=== PATIENT | male | born 1980 | race African-American/Black ===

== ENCOUNTER 2018-04-05 13:48 | Inpatient (IN) ==
[2018-04-05] MEDS ORDERED: Acetaminophen 325 MG Tablet PO ONE (15:05)
--- NOTE | 2018-04-05 15:21 | ED ---
HPI General Chief complaint: Respiratory Symptoms Stated complaint: Flu-Like symptoms Time Seen by Provider: 04/05/18 14:55 Source: patient Mode of arrival: ambulatory Limitations: no limitations History of Present Illness HPI narrative: 37-year-old male with a history of HIV presents to the emergency department evaluation of "flulike symptoms" that have been persistent for 2 weeks. Patient states that he has had an occasionally productive cough with yellow and green sputum, sinus congestion, chills, occasional shortness of breath. Also states he has a headache from the amount of coughing that he has been doing. States that his sinuses have also been sore and has clear rhinorrhea. He denies any other medical problems. Says he has posterior rib pain with coughing. Onset (ago): week(s) (2) Severity: mild Pain Consistency: constant Relieving factors: none Exacerbating factors: none Associated symptoms: Reports cough and fever/chills Treatments prior to arrival: Reports none Related Data Home Medications Medication Instructions Recorded Confirmed No Known Home Medications 01/22/18 04/05/18 Previous Rx's Medication Instructions Recorded azithromycin [Zithromax] 500 mg PO DAILY #5 tab 04/06/18 cefuroxime axetil 500 mg PO Q12HR #14 tab 04/06/18 Allergies Allergy/AdvReac Type Severity Reaction Status Date / Time No Known Allergies Allergy Unverified 01/22/18 17:54 Review of Systems ROS: all other systems reviewed are negative [facility] Social History Social History Substance History: No History of Abuse Second Hand Smoke Exposure: Yes Smoking Status: Former smoker Tobacco Type: Cigarettes How Often Do You Have a Drink Containing Alcohol: Never Recent Travel in [facility] within the Last 8 Weeks: No Recent Out of Country Travel within the Last 8 Weeks: No Immunization History Tetanus Immunization: Unsure Exam Narrative Exam Narrative: GENERAL: WD, WN in NAD SKIN: Focused skin assessment warm/dry. HEAD: Atraumatic. Normocephalic. EYES: Pupils equal and round. No scleral icterus. No injection or drainage. ENT: No nasal bleeding or discharge. Mucous membranes pink and moist. NECK: Trachea midline. No JVD. CARDIOVASCULAR: Regular rate and rhythm. No murmur appreciated. RESPIRATORY: No accessory muscle use. Clear to auscultation. Breath sounds equal bilaterally. Wheezing R>L lower lung elizabeth, rhonchi MUSCULOSKELETAL: No obvious deformities. No clubbing. No cyanosis. No edema. NEUROLOGICAL: Awake and alert. No obvious cranial nerve deficits. Motor grossly within normal limits. Normal speech. PSYCHIATRIC: Appropriate mood and affect; insight and judgment normal. Course Initial Documented Vital Signs Temperature 100.4 F H 04/05/18 13:55 Pulse Rate 92 H 04/05/18 13:55 Respiratory Rate 17 04/05/18 13:55 Blood Pressure 187/80 H 04/05/18 13:55 Pulse Oximetry 98 04/05/18 13:55 Last Documented Vital Signs Temperature 98.5 F 04/06/18 12:00 Pulse Rate 70 04/06/18 12:00 Respiratory Rate 18 04/06/18 12:00 Blood Pressure 130/58 L 04/06/18 12:00 Pulse Oximetry 100 04/06/18 12:00 Medical Decision Making ZULMA Attestation ZULMA supervised visit: Yes Attestation: I, Dr. Knight, have reviewed the advance practice practitioner's documentation and am in agreement, met with the patient face to face, made the diagnosis, and the medical decision making was done by me. *My assessment and Findings: Patient is a 37-year-old male, past medical history significant for HIV and noncompliance with his medications, who presents with complaint of generalized ill feeling for the last 2 weeks with a cough. He is febrile on arrival but has been hemodynamically stable with a normal pulse ox. Given his possible immunocompromise sepsis protocol was initiated. Chest x-ray is concerning for pneumonia for which she has been given Rocephin and azithromycin as it does not have the typical appearance of PJP pneumonia. He has been given multiple duo nebs as he has had wheezing as well to which he has responded well. He will be admitted to the hospital for further evaluation and management. MDM Narrative Medical decision making narrative: 37-year-old male with a history of HIV presents to the emergency department for evaluation of fever, body aches, and flu-like symptoms. States he has shortness of breath as well. Says his symptoms have been present for approximately 2 weeks. He states that he has not had treatment for HIV in 2 years and he would like assistance obtaining a primary care physician and infectious disease provider. Says he has been to the health department however, he has had some difficulty obtaining treatment. CT head ordered for concern of abscesses he has a history of HIV untreated. He is also complaining of headache. Tylenol administered for fever. Albuterol nebs administered x2. Rocephin, azithromycin, Solu-Medrol administered for developing pneumonia. Because of his history of untreated HIV, fever, duration of symptoms, will admit patient for observation. I spoke with Dr. Dietrich who agreed to the admission. Medical Screen Exam Complete: Yes Emergency Medical Condition: Yes Differential Diagnosis Differential Diagnosis: Pneumonia, sepsis, abscess Lab Data Result diagrams: 04/06/18 04:47 04/06/18 04:47 Lab Results 04/05/18 04/05/18 04/05/18 Range/Units 15:50 15:50 15:50 WBC 11.3 H (4.0-11.0) th/mm3 RBC 4.34 L (4.50-5.90) mil/mm3 Hgb 12.5 L (13.0-17.0) gm/dL Hct 36.3 L (39.0-51.0) % MCV 83.6 (80.0-100.0) fL MCH 28.8 (27.0-34.0) pg MCHC 34.5 (32.0-36.0) % RDW 13.3 (11.6-17.2) % Plt Count 233 (150-450) th/mm3 MPV 8.5 (7.0-11.0) fL Neut % (Auto) 52.9 (16.0-70.0) % Lymph % (Auto) 38.8 (9.0-44.0) % [place] % (Auto) 6.9 (0.0-8.0) % Eos % (Auto) 1.0 (0.0-4.0) % Baso % (Auto) 0.4 (0.0-2.0) % Neut # (Auto) 6.0 (1.8-7.7) th/mm3 Lymph # (Auto) 4.4 (1.0-4.8) th/mm3 [place] # (Auto) 0.8 (0.0-0.9) th/mm3 Eos # (Auto) 0.1 (0.0-0.4) th/mm3 Baso # (Auto) 0.0 (0.0-0.2) th/mm3 WBC Differential . Differential Comment Auto diff final PT 10.9 (9.8-11.6) sec INR 1.1 Ratio APTT 35.5 H (24.3-30.1) sec Sodium 137 (136-145) meq/L Potassium 3.9 (3.5-5.1) meq/L Chloride 100 (98-107) meq/L Carbon Dioxide 29.3 (21.0-32.0) meq/L Anion Gap 8 (5-15) meq/L BUN 13 (7-18) mg/dL Creatinine 1.04 (0.60-1.30) mg/dL Estimated GFR Greater than 89 (>89) mL/min Random Glucose 91 (74-106) mg/dL Lactic Acid (0.4-2.0) mmol/L Calcium 9.1 (8.5-10.1) mg/dL Total Bilirubin 0.4 (0.2-1.0) mg/dL AST 26 (15-37) U/L ALT 20 (12-78) U/L Alkaline Phosphatase 60 (45-117) U/L Total Protein 9.4 H (6.4-8.2) g/dL Albumin 3.2 L (3.4-5.0) g/dL 04/05/18 04/06/18 04/06/18 Range/Units 15:54 04:47 04:47 WBC 9.2 (4.0-11.0) th/mm3 RBC 4.26 L (4.50-5.90) mil/mm3 Hgb 12.1 L (13.0-17.0) gm/dL Hct 36.3 L (39.0-51.0) % MCV 85.2 (80.0-100.0) fL MCH 28.4 (27.0-34.0) pg MCHC 33.4 (32.0-36.0) % RDW 13.6 (11.6-17.2) % Plt Count 205 (150-450) th/mm3 MPV 9.6 (7.0-11.0) fL Neut % (Auto) 70.5 H (16.0-70.0) % Lymph % (Auto) 25.3 (9.0-44.0) % [place] % (Auto) 3.7 (0.0-8.0) % Eos % (Auto) 0.0 (0.0-4.0) % Baso % (Auto) 0.5 (0.0-2.0) % Neut # (Auto) 6.5 (1.8-7.7) th/mm3 Lymph # (Auto) 2.3 (1.0-4.8) th/mm3 [place] # (Auto) 0.3 (0.0-0.9) th/mm3 Eos # (Auto) 0.0 (0.0-0.4) th/mm3 Baso # (Auto) 0.0 (0.0-0.2) th/mm3 WBC Differential . Differential Comment Auto diff final PT (9.8-11.6) sec INR Ratio APTT (24.3-30.1) sec Sodium 138 (136-145) meq/L Potassium 4.9 D (3.5-5.1) meq/L Chloride 103 (98-107) meq/L Carbon Dioxide 28.0 (21.0-32.0) meq/L Anion Gap 7 (5-15) meq/L BUN 14 (7-18) mg/dL Creatinine 0.88 (0.60-1.30) mg/dL Estimated GFR Greater than 89 (>89) mL/min Random Glucose 99 (74-106) mg/dL Lactic Acid 1.1 (0.4-2.0) mmol/L Calcium 8.8 (8.5-10.1) mg/dL Total Bilirubin 0.2 (0.2-1.0) mg/dL AST 18 (15-37) U/L ALT 19 (12-78) U/L Alkaline Phosphatase 58 (45-117) U/L Total Protein 8.6 H D (6.4-8.2) g/dL Albumin 2.8 L (3.4-5.0) g/dL Imaging Data Radiologist's impression: Chest X-Ray 04/05/18 15:05 CONCLUSION: Small mild infiltrate left lung base. Head CT 04/05/18 15:23 CONCLUSION: 1. Unremarkable and stable CT scan of the brain. 2. There is a New Bilateral pansinusitis. Discharge Plan Discharge Disposition Patient Disposition: 30 Still Patient Discharge Condition Condition: Stable Discharge Details Diagnosis: Pneumonia Physicians Team ED Provider: Margarita Knight ED Midlevel Provider: Kely Mccray Primary Care Provider: Primary Care Ena Sanz Attending Provider: Rocio Daniels Other Providers: June Nguyen Status ED Status: Left Department Discharge Information Discharge Date/Time: 04/05/18 20:38
--- NOTE | 2018-04-05 15:51 | XR ---
EXAM DATE: 04/05/2018 3:05 PM EDT AGE/SEX: 37 years / Male INDICATIONS: . Cold and flu symptoms for two weeks. CLINICAL DATA: This is the patient's initial encounter. Patient reports that signs and symptoms have been present for 2 weeks and indicates a pain score of 0/10. MEDICAL/SURGICAL HISTORY: None. None. COMPARISON: No prior exams available for comparison. FINDINGS: There is a small mild infiltrate in the left lung base. Otherwise, the lungs are clear. No pleural ef fusions or pulmonary edema. The heart size is within normal limits. The bony structures are grossly i ntact. CONCLUSION: Small mild infiltrate left lung base. Electronically signed by: Alfie Avelar MD 04/05/2018 3:50 PM EDT
[2018-04-05] MEDS ORDERED: Sod Chloride 0.9% Inj 1,000 ML IV.SIG SCH (16:00)
[2018-04-05 16:14] LABS: Baso % (Auto) 0.4 % (0.0-2.0); Eos # (Auto) 0.1 th/mm3 (0.0-0.4); Hematocrit 36.3 % (39.0-51.0); Hemoglobin 12.5 gm/dL (13.0-17.0); Lymph # (Auto) 4.4 th/mm3 (1.0-4.8); Lymph % (Auto) 38.8 % (9.0-44.0); Mean Corpuscular HGB Conc 34.5 % (32.0-36.0); Mean Corpuscular Hemoglobin 28.8 pg (27.0-34.0); Mean Corpuscular Volume 83.6 fL (80.0-100.0); Mean Platelet Volume 8.5 fL (7.0-11.0); Mono # (Auto) 0.8 th/mm3 (0.0-0.9); Mono % (Auto) 6.9 % (0.0-8.0); Neut % (Auto) 52.9 % (16.0-70.0); Platelet Count 233 th/mm3 (150-450); Red Blood Count 4.34 mil/mm3 (4.50-5.90); Red Cell Distribution Width 13.3 % (11.6-17.2); White Blood Count 11.3 th/mm3 (4.0-11.0)
[2018-04-05 16:28] LABS: Activated Partial Thrombo Time 35.5 sec (24.3-30.1); INR 1.1 Ratio; Prothrombin Time 10.9 sec (9.8-11.6)
[2018-04-05 16:33] LABS: Albumin 3.2 g/dL (3.4-5.0); Anion Gap 8 meq/L (5-15); Aspartate Aminotransferase 26 U/L (15-37); Blood Urea Nitrogen 13 mg/dL (7-18); Calcium 9.1 mg/dL (8.5-10.1); Carbon Dioxide 29.3 meq/L (21.0-32.0); Chloride 100 meq/L (98-107); Glomerular Filtration Rate Greater Than 89 mL/min (>89); Glucose,Random 91 mg/dL (74-106); Potassium 3.9 meq/L (3.5-5.1); Sodium 137 meq/L (136-145)
[2018-04-05] MEDS ORDERED: MethylPREDNISolone Sod Succinate Inj 125 MG/2 ML Vial IV.PUSH ONE (16:33)
[2018-04-05 16:34] LABS: Alanine Aminotransferase 20 U/L (12-78)
[2018-04-05 16:37] LABS: Alkaline Phosphatase 60 U/L (45-117); Total Protein 9.4 g/dL (6.4-8.2)
[2018-04-05] MEDS ORDERED: Azithromycin 250 MG Tablet PO ONE (16:46)
--- NOTE | 2018-04-05 17:58 | CT ---
EXAM DATE: 04/05/2018 5:21 PM EDT AGE/SEX: 37 years / Male INDICATIONS: Headache with sepsis; possible abscess. CLINICAL DATA: This is the patient's initial encounter. Patient reports that signs and symptoms have been present for 1 week and indicates a pain score of 6/10. MEDICAL/SURGICAL HISTORY: HIV. None. RADIATION DOSE: 40.64 CTDI (mGy) [place] [facility] [place]22/[place]. . TECHNIQUE: Axial images of the head were acquired without contrast and after intravenous administrat ion of 48 ml Omnipaque 350 (iohexol) nonionic water-soluble contrast as a single exam dose. Using automated exposure control and adjustment of the mA and/or kV according to patient size, radiation do se was kept as low as reasonably achievable to obtain optimal diagnostic quality images. DICOM forma t image data is available electronically for review and comparison. FINDINGS: Cerebrum: The ventricles are normal for age. No evidence of midline shift, mass lesion, hemorrhage or acute infarction. No extraaxial fluid collections are seen. No significant changes. Posterior Fossa: The cerebellum and brainstem are intact. The 4th ventricle is midline. The cerebe llopontine angle is unremarkable. Extracranial: The visualized portion of the orbits is intact. There is opacification of the paranasa l sinuses bilaterally. There is bilateral pansinusitis. This finding is new compared to the prior schuyler dy. Skull: The calvaria is intact. No evidence of skull fracture. Post Contrast: No abnormal areas of parenchymal or dural enhancement. No evidence of blood-brain ba rrier breakdown. CONCLUSION: 1. Unremarkable and stable CT scan of the brain. 2. There is a New Bilateral pansinusitis. Electronically signed by: Alfie Avelar MD 04/05/2018 5:57 PM EDT
[2018-04-05] MEDS ORDERED: Bisacodyl 10 MG Supp RECTAL PRN (18:53)
[2018-04-05] MEDS ORDERED: Acetaminophen 325 MG Tablet PO PRN (18:53)
--- NOTE | 2018-04-05 18:55 | P.HPIM ---
History of Present Illness Primary Care Physician: No Primary Care Physician History of Present Illness: This is a 37-year-old male with PMH of HIV (Unknown CD4) who presented to ER with complaints of generalized weakness, congestion, fever/chills and productive cough w/ green-colored sputum. States he was previously following w / doctor in [facility], however has been off of HAART x2 yrs, does not recall last CD4 count. On arrival, BP 187/80, HR 92, O2 sat 98% on RA, Temp 100.4. WBC 11.3. INR 1.1. Chemistry unremarkable. Lactic Acid normal. S/p CT Head unremarkable. CXR small mild infiltrate left lung base. S/p Rocephin/Zithro in ER. - Diagnosis (1) SIRS (systemic inflammatory response syndrome) (2) PNA (pneumonia) (3) HIV (human immunodeficiency virus infection) Review of Systems PAST FAMILY HISTORY: Reviewed. No h/o DM or CAD All other systems reviewed negative except as stated in [facility] - History History Provided By: Patient - Medical History Medical History: Medical History (Last Updated 04/05/18 @ 14:46 by Mariel Gonzales) HIV disease Brain concussion Ptosis of eyelid, right - Tobacco History Second Hand Smoke Exposure: Yes Smoking Status: Former smoker Tobacco Type: Cigarettes - Alcohol History How Often Do You Have a Drink Containing Alcohol: Never - Substance Use History Substance History: No History of Abuse - Travel History Recent Travel in the [facility] Within the Last 8 Weeks: No Recent Travel Out of the Country Within the Last 8 Weeks: No - Immunization History Tetanus Immunization: Unsure Medications and Allergies Active Medications: Active Medications Sodium Chloride (Ns Inj) 1,000 mls @ 0 mls/hr IV.SIG BOLUS GABE Stop: 04/06/18 16:01 Allergies Allergy/AdvReac Type Severity Reaction Status Date / Time No Known Allergies Allergy Unverified 01/22/18 17:54 Home Medications Medication Instructions Recorded Confirmed Type No Known Home Medications 01/22/18 04/05/18 History Exam Vital signs: Vital Signs 04/05/18 13:55 04/05/18 15:17 04/05/18 16:30 Temperature 100.4 F H Pulse Rate 92 H 80 98 H Respiratory Rate 17 20 16 Blood Pressure 187/80 H Pulse Oximetry 98 Intake & Output 04/04/18 04/05/18 04/05/18 18:59 06:59 18:59 Weight 86.183 kg Narrative: PE: GENERAL: Pleasant young black male in no acute distress, profusely sweating. SKIN: Focused skin assessment warm and dry. HEENT: PERRLA, EOMI. No scleral icterus or conjunctival pallor. No lid lag or facial droop. CARDIOVASCULAR: Regular rate and rhythm. No obvious murmurs to auscultation. No chest tenderness to palpation. RESPIRATORY: No obvious rhonchi or wheezing. Clear to auscultation. Breath sounds equal bilaterally. GASTROINTESTINAL: Abdomen soft, non-tender, nondistended. BS normal. MUSCULOSKELETAL: Extremities without clubbing, cyanosis, or edema. No obvious deformities. NEUROLOGICAL: Awake, alert and oriented x4. No focal neurologic deficits. Moving both upper and lower extremities spontaneously. PSYCHIATRIC: Appropriate mood, flat affect. Insight and judgment normal. Results - Labs CBC & Chem 7: 04/05/18 15:50 04/05/18 15:50 Labs: Short CBC 04/05/18 Range/Units 15:50 WBC 11.3 H (4.0-11.0) th/mm3 Hgb 12.5 L (13.0-17.0) gm/dL Hct 36.3 L (39.0-51.0) % Plt Count 233 (150-450) th/mm3 BMP 04/05/18 15:50 Sodium 137 Potassium 3.9 Chloride 100 Carbon Dioxide 29.3 BUN 13 Creatinine 1.04 Calcium 9.1 Liver Function 04/05/18 Range/Units 15:50 Total Bilirubin 0.4 (0.2-1.0) mg/dL AST 26 (15-37) U/L ALT 20 (12-78) U/L Alkaline Phosphatase 60 (45-117) U/L Albumin 3.2 L (3.4-5.0) g/dL - Imaging Impressions Chest X-Ray 04/05/18 15:05 CONCLUSION: Small mild infiltrate left lung base. Head CT 04/05/18 15:23 CONCLUSION: 1. Unremarkable and stable CT scan of the brain. 2. There is a New Bilateral pansinusitis. Caprini VTE Risk Assessment Caprini VTE Risk Assessment: No/Low Risk (score <= 1) Caprini Risk Assessment Model: Point Value = 1 Point Value = 2 Point Value = 3 Point Value = 5 Age 41-60 Minor surgery BMI > 25 kg/m2 Swollen legs Varicose veins or History of unexplained or recurrent spontaneous Oral contraceptives or hormone replacement Sepsis (< 1 month) Serious lung disease, including pneumonia (< 1 month) Abnormal pulmonary function Acute myocardial infarction Congestive heart failure (< 1 month) History of inflammatory bowel disease Medical patient at bed rest Age 61-74 Arthroscopic surgery Major open surgery (> 45 min) Laparoscopic surgery (> 45 min) Malignancy Confined to bed (> 72 hours) Immobilizing plaster cast Central venous access Age >= 75 History of VTE Family history of VTE Factor V Leiden Prothrombin [id number] Lupus anticoagulant Anticardiolipin antibodies Elevated serum homocysteine Heparin-induced thrombocytopenia Other congenital or acquired thrombophilia Stroke (< 1 month) Elective arthroplasty Hip, pelvis, or leg fracture Acute spinal cord injury (< 1 month) Prophylaxis Regimen: Total Risk Factor Score Risk Level Prophylaxis Regimen 0-1 Low Early ambulation 2 Moderate Order ONE of the following: *Sequential Compression Device (SCD) *Heparin 5000 units SQ BID 3-4 Higher Order ONE of the following medications: *Heparin 5000 units SQ TID *Enoxaparin/Lovenox 40 mg SQ daily (WT < 150 kg, CrCl > 30 mL/min) *Enoxaparin/Lovenox 30 mg SQ daily (WT < 150 kg, CrCl > 10-29 mL/min) *Enoxaparin/Lovenox 30 mg SQ BID (WT < 150 kg, CrCl > 30 mL/min) AND/OR *Sequential Compression Device (SCD) 5 or more Highest Order ONE of the following medications: *Heparin 5000 units SQ TID (Preferred with Epidurals) *Enoxaparin/Lovenox 40 mg SQ daily (WT < 150 kg, CrCl > 30 mL/min) *Enoxaparin/Lovenox 30 mg SQ daily (WT < 150 kg, CrCl > 10-29 mL/min) *Enoxaparin/Lovenox 30 mg SQ BID (WT < 150 kg, CrCl > 30 mL/min) AND *Sequential Compression Device (SCD) Assessment and Plan - Assessment (1) SIRS (systemic inflammatory response syndrome) Code(s): R65.10 - Systemic inflammatory response syndrome (SIRS) of non- infectious origin without acute organ dysfunction Status: Acute (2) PNA (pneumonia) Code(s): J18.9 - Pneumonia, unspecified organism Status: Acute (3) HIV (human immunodeficiency virus infection) Code(s): B20 - Human immunodeficiency virus [HIV] disease Status: Acute - Plan A/P: 1. SIRS: Temp 100.4, HR 92, Source-PNA. S/p Blood cultures, follow up cultures, continue IV Abx, IVF for hydration. 2. PNA: CXR w/ left base infiltrate, images reviewed. Continue w/ Rocephin/ Zithro, DuoNeb prn, follow up cultures as above. 3. HIV: Not on HAART, off meds x2 yrs, does not recall last CD4 count but wishes to restart treatment. Lymphocyte panel pending, Consult ID for further eval/work up. Case Management for outpatient referral. 4. DVT Prophylaxis: SCD/Teds 5. Social work for d/c planning as needed 6. Case discussed w/ ER physician at length, labs/records/imaging reviewed by me.
[2018-04-05] MEDS: Sod Chloride 0.9% Inj 1,000 ML IV.CONT SCH (20:30)
[2018-04-06 06:06] LABS: Baso % (Auto) 0.5 % (0.0-2.0); Hematocrit 36.3 % (39.0-51.0); Hemoglobin 12.1 gm/dL (13.0-17.0); Lymph # (Auto) 2.3 th/mm3 (1.0-4.8); Lymph % (Auto) 25.3 % (9.0-44.0); Mean Corpuscular HGB Conc 33.4 % (32.0-36.0); Mean Corpuscular Hemoglobin 28.4 pg (27.0-34.0); Mean Corpuscular Volume 85.2 fL (80.0-100.0); Mean Platelet Volume 9.6 fL (7.0-11.0); Mono # (Auto) 0.3 th/mm3 (0.0-0.9); Mono % (Auto) 3.7 % (0.0-8.0); Neut # (Auto) 6.5 th/mm3 (1.8-7.7); Neut % (Auto) 70.5 % (16.0-70.0); Platelet Count 205 th/mm3 (150-450); Red Blood Count 4.26 mil/mm3 (4.50-5.90); Red Cell Distribution Width 13.6 % (11.6-17.2); White Blood Count 9.2 th/mm3 (4.0-11.0)
[2018-04-06 06:28] LABS: Alanine Aminotransferase 19 U/L (12-78); Albumin 2.8 g/dL (3.4-5.0); Alkaline Phosphatase 58 U/L (45-117); Anion Gap 7 meq/L (5-15); Aspartate Aminotransferase 18 U/L (15-37); Blood Urea Nitrogen 14 mg/dL (7-18); Calcium 8.8 mg/dL (8.5-10.1); Chloride 103 meq/L (98-107); Glomerular Filtration Rate Greater Than 89 mL/min (>89); Glucose,Random 99 mg/dL (74-106); Potassium 4.9 meq/L (3.5-5.1); Sodium 138 meq/L (136-145); Total Protein 8.6 g/dL (6.4-8.2)
[2018-04-06] MEDS: Budesonide-Formoterol 160/4.5 MCG 6 GM Inhaler INH SCH ×3 (07:16→21:29)
[2018-04-06] MEDS: Senna/Docusate Sodium 8.6/50 MG Tablet PO SCH ×3 (07:17→20:49)
[2018-04-06] MEDS: Sod Chloride 0.9% Inj 1,000 ML IV.CONT SCH (07:17)
[2018-04-06] MEDS ORDERED: guaiFENesin/Dextromethorphan 200 MG/20 MG 10 ML UDC PO PRN (09:36)
--- NOTE | 2018-04-06 09:36 | P.PNIM ---
Subjective Interval history: Complained of chest congestion and still with productive cough. Mild shortness of breath. No active chest pain. Still having some chills and fevers and fatigue. States that he was on antiretrovirals when he was in correction 2 years ago but has not been on this medication since he was released. Physical Exam Vital signs: Vital Signs 04/05/18 13:55 04/05/18 15:17 04/05/18 16:30 Temperature 100.4 F H Pulse Rate 92 H 80 98 H Respiratory Rate 17 20 16 Blood Pressure 187/80 H Pulse Oximetry 98 04/05/18 19:55 04/05/18 21:03 04/05/18 23:38 Temperature 98.1 F 98.5 F Pulse Rate 88 79 72 Respiratory Rate 16 18 18 Blood Pressure 123/65 134/74 123/68 Pulse Oximetry 96 99 04/06/18 08:00 Temperature 98.3 F Pulse Rate 60 Respiratory Rate 18 Blood Pressure 127/76 Pulse Oximetry 100 Intake & Output 04/05/18 04/06/18 04/06/18 18:59 06:59 18:59 Intake Total 480 / 480 Balance 480 / 480 Weight 86.183 kg 86.1 kg 86.1 kg Intake: Oral 480 / 480 Other: # Voids 2 # Bowel Movements 0 Weight On Admission 172.72 kg Narrative: GENERAL: This is a well-nourished, well-developed patient, in no apparent distress. CARDIOVASCULAR: Regular rate and rhythm without murmurs, gallops, or rubs. RESPIRATORY: Left-sided basilar rhonchi GASTROINTESTINAL: Abdomen soft, non-tender, nondistended. Normal active bowel sounds MUSCULOSKELETAL: Extremities without clubbing, cyanosis, or edema. NEURO: Alert & Oriented x4 to person, place, time, situation. Moves all ext x4 Results - Labs CBC & Chem 7: 04/06/18 04:47 04/06/18 04:47 Laboratory Results - last 24 hr 04/05/18 04/05/18 04/05/18 15:50 15:50 15:50 WBC 11.3 H RBC 4.34 L Hgb 12.5 L Hct 36.3 L MCV 83.6 MCH 28.8 MCHC 34.5 RDW 13.3 Plt Count 233 MPV 8.5 Neut % (Auto) 52.9 Lymph % (Auto) 38.8 [place] % (Auto) 6.9 Eos % (Auto) 1.0 Baso % (Auto) 0.4 Neut # (Auto) 6.0 Lymph # (Auto) 4.4 [place] # (Auto) 0.8 Eos # (Auto) 0.1 Baso # (Auto) 0.0 WBC Differential . Differential Comment Auto diff final PT 10.9 INR 1.1 APTT 35.5 H Sodium 137 Potassium 3.9 Chloride 100 Carbon Dioxide 29.3 Anion Gap 8 BUN 13 Creatinine 1.04 Estimated GFR Greater than 89 Random Glucose 91 Lactic Acid Calcium 9.1 Total Bilirubin 0.4 AST 26 ALT 20 Alkaline Phosphatase 60 Total Protein 9.4 H Albumin 3.2 L 04/05/18 04/06/18 04/06/18 15:54 04:47 04:47 WBC 9.2 RBC 4.26 L Hgb 12.1 L Hct 36.3 L MCV 85.2 MCH 28.4 MCHC 33.4 RDW 13.6 Plt Count 205 MPV 9.6 Neut % (Auto) 70.5 H Lymph % (Auto) 25.3 [place] % (Auto) 3.7 Eos % (Auto) 0.0 Baso % (Auto) 0.5 Neut # (Auto) 6.5 Lymph # (Auto) 2.3 [place] # (Auto) 0.3 Eos # (Auto) 0.0 Baso # (Auto) 0.0 WBC Differential . Differential Comment Auto diff final PT INR APTT Sodium 138 Potassium 4.9 D Chloride 103 Carbon Dioxide 28.0 Anion Gap 7 BUN 14 Creatinine 0.88 Estimated GFR Greater than 89 Random Glucose 99 Lactic Acid 1.1 Calcium 8.8 Total Bilirubin 0.2 AST 18 ALT 19 Alkaline Phosphatase 58 Total Protein 8.6 H D Albumin 2.8 L - Imaging Impressions Chest X-Ray 04/05/18 15:05 CONCLUSION: Small mild infiltrate left lung base. Head CT 04/05/18 15:23 CONCLUSION: 1. Unremarkable and stable CT scan of the brain. 2. There is a New Bilateral pansinusitis. Assessment and Plan - Assessment (1) SIRS (systemic inflammatory response syndrome) Code(s): R65.10 - Systemic inflammatory response syndrome (SIRS) of non- infectious origin without acute organ dysfunction Status: Acute (2) PNA (pneumonia) Code(s): J18.9 - Pneumonia, unspecified organism Status: Acute (3) HIV (human immunodeficiency virus infection) Code(s): B20 - Human immunodeficiency virus [HIV] disease Status: Acute - Plan 1. Community acquired pneumoniacontinue with IV Rocephin and Zithromax continue with DuoNeb treatment as needed follow-up with blood cultures and sputum cultures. Continue supportive care. 2. HIV history: Not on HAART, off meds x2 yrs, does not recall last CD4 count but wishes to restart treatment. Lymphocyte panel pending, Consult ID for further eval/work up. Case Management for outpatient referral. Counseled patient importance of following up with the [facility]. 3. Leukocytosisimproved on antibiotics. 4. DVT prophylaxisno mechanical or pharmaceutical VTE prophalaxis administered due to patient's low risk assessment of VTE. Encouraged ambulation.
--- NOTE | 2018-04-06 10:51 | P.CONID ---
History of Present Illness Service: Infectious disease Consult date: 04/06/18 Requesting Physician: Monica Emmanuel Reason for Consult: Evaluate patient with SIRS, HIV Primary Care Provider: No Primary Care Physician History of Present Illness: Patient seen and examined. Records reviewed. Patient is a 37-year-old male, diagnosed to have HIV around 2014, when he was in [facility], was reportedly started on antiretroviral during the time that he was in [facility]. He does not have any information as far as T-cell count. He has never had any infection related to his HIV. He was released from [facility] about a year and a half ago, and he moved here in the [facility]. He presented to the hospital complaining of 2-week history of generalized weakness, congestion, cough, productive of yellow to green phlegm. He denies any chest pain or any shortness of breath. He has had some fever and chills. 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 He lives by himself. He denies any exposure to any pets or birds. When he came in his white count was mildly elevated at 11. Chest x-ray showed a mild infiltrate in the left base. He was not hypoxic or tachycardic. Lactic acid is normal. Infectious disease consultation has been requested to evaluate the patient with HIV. Review of Systems Constitutional: Reports chills, Reports fever(s), Reports lack of energy, Reports malaise, Reports weakness, Denies night sweats Eyes: Denies discharge, Denies dry eyes Ears, Nose, Mouth, and Throat: Denies difficulty swallowing, Denies dizziness, Denies facial pain, Denies headache(s), Denies nasal discharge, Denies sore throat Cardiovascular: Denies chest pain, Denies shortness of breath Respiratory: Reports chest congestion, Reports cough, Denies coughing up blood, Denies shortness of breath Gastrointestinal: Denies abdominal pain, Denies loose stools, Denies nausea, Denies pain with swallowing, Denies vomiting Genitourinary: Denies difficulty urinating, Denies painful urination Musculoskeletal: Denies joint pain, Denies joint swelling Skin/Breast: Denies sores, Denies wounds PMFSH - History History Provided By: Patient - Medical History Medical History: Medical History (Last Reviewed 04/06/18 @ 10:47 by June Nguyen MD) HIV disease Brain concussion Ptosis of eyelid, right - Family History Family History: Family History (Last Reviewed 04/06/18 @ 10:47 by June Nguyen MD) Brother No problems noted. Father No problems noted. Other Family history of acute myocardial infarction Family history of diabetes mellitus - Tobacco History Second Hand Smoke Exposure: Yes Smoking Status: Former smoker Tobacco Type: Cigarettes - Alcohol History How Often Do You Have a Drink Containing Alcohol: Never - Substance Use History Substance History: No History of Abuse - Travel History Recent Travel in the [place] Within the Last 8 Weeks: No Recent Travel Out of the Country Within the Last 8 Weeks: No - Immunization History Tetanus Immunization: Unsure Medications and Allergies Active Medications: Active Medications Acetaminophen (Tylenol) 650 mg PO Q4H PRN PRN Reason: Temp > 100.4 Al Hydroxide/Mg Hydroxide (Milk Of Magnesia Liq) 30 ml PO Q12H PRN PRN Reason: Mild Constipation Albuterol (Duoneb Neb (Prn)) 1 ampul NEB Q4HR NEB PRN PRN Reason: SOB/WHEEZING Bisacodyl (Dulcolax Supp) 10 mg RECTAL DAILY PRN PRN Reason: SEVERE CONSITIPATION Budesonide/Formoterol Fumarate (Symbicort 160/4.5 Mcg Inh) 2 puff INH BID [facility] Last Admin: 04/06/18 07:16 Dose: Not Given Guaifenesin/Dextromethorphan (Robitussin Dm 200/20 Mg/10 Ml Liq) 10 ml PO Q4H PRN PRN Reason: COUGH Sodium Chloride (Ns Inj) 1,000 mls @ 0 mls/hr IV.SIG BOLUS GABE Stop: 04/06/18 16:01 Azithromycin 500 mg/ Sodium (Chloride) 250 mls @ 250 mls/hr IV.SIG Q24H GABE Ceftriaxone Sodium 1,000 mg/ (Sodium Chloride) 100 mls @ 200 mls/hr IV.SIG Q24H GABE Lactulose (Lactulose Liq) 30 ml PO DAILY PRN PRN Reason: SEVERE CONSITIPATION Ondansetron HCl (Zofran Inj) 4 mg IV.PUSH Q6H PRN PRN Reason: NAUSEA OR VOMITING Senna/Docusate Sodium (Silvia-Colace) 1 tab PO BID GABE Last Admin: 04/06/18 08:52 Dose: Not Given Sennosides (Senokot) 17.2 mg PO Q12H PRN PRN Reason: Moderate Constipation Allergies Allergy/AdvReac Type Severity Reaction Status Date / Time No Known Allergies Allergy Unverified 01/22/18 17:54 Home Medications Medication Instructions Recorded Confirmed Type No Known Home Medications 01/22/18 04/05/18 History Exam Vital signs: Vital Signs 04/05/18 13:55 04/05/18 15:17 04/05/18 16:30 Temperature 100.4 F H Pulse Rate 92 H 80 98 H Respiratory Rate 17 20 16 Blood Pressure 187/80 H Pulse Oximetry 98 04/05/18 19:55 04/05/18 21:03 04/05/18 23:38 Temperature 98.1 F 98.5 F Pulse Rate 88 79 72 Respiratory Rate 16 18 18 Blood Pressure 123/65 134/74 123/68 Pulse Oximetry 96 99 04/06/18 08:00 Temperature 98.3 F Pulse Rate 60 Respiratory Rate 18 Blood Pressure 127/76 Pulse Oximetry 100 Intake & Output 04/05/18 04/06/18 04/06/18 18:59 06:59 18:59 Intake Total 480 / 480 Balance 480 / 480 Weight 86.183 kg 86.1 kg 86.1 kg Intake: Oral 480 / 480 Other: # Voids 2 Date of Last Bowel Movement 04/05/18 # Bowel Movements 0 Weight On Admission 172.72 kg Narrative: Physical Examination GENERAL: Patient is a well-nourished, well-developed male, awake and alert, not in respiratory distress. SKIN: Warm and dry. No generalized rash, no ecchymoses and no evidence of embolic lesions. HEAD: Atraumatic. Normocephalic. No temporal wasting, or tenderness. EYES: [place] conjunctiva. No petechia or hemorrhage. Pupils equal, round and reactive to light. Extraocular movements full and intact. Has ptosis on R eye. No scleral icterus. No injection or drainage. EARS, NOSE AND THROAT: Nose without bleeding or purulent nasal discharge. No sinus tenderness. Mucous membranes pink and moist. No oral lesions noted. No exudate. No oral thrush. NECK: Trachea midline. Supple and not tender, no meningeal signs CARDIOVASCULAR: Regular rate and rhythm. No murmurs, rubs or gallops heard RESPIRATORY: Clear to auscultation. Breath sounds equal bilaterally. No rales , wheezing or rhonchi ABDOMEN: Soft, non-tender, nondistended. Bowel sounds present and normoactive. No guarding. No rebound. No organomegaly. EXTREMITIES: No clubbing, cyanosis, or edema.No joint effusion, has good ROM. No calf tenderness. Well perfused and warm. NEUROLOGICAL: Awake and alert. Ptosis on R eye, otherwise CN intact. Motor grossly within normal limits. PSYCHIATRIC: Normal affect, calm and cooperative. LINE: No evidence of infection Results - Labs CBC & Chem 7: 04/06/18 04:47 04/06/18 04:47 Labs: Laboratory Results - last 24 hr 04/05/18 04/05/18 04/05/18 15:50 15:50 15:50 WBC 11.3 H RBC 4.34 L Hgb 12.5 L Hct 36.3 L MCV 83.6 MCH 28.8 MCHC 34.5 RDW 13.3 Plt Count 233 MPV 8.5 Neut % (Auto) 52.9 Lymph % (Auto) 38.8 [place] % (Auto) 6.9 Eos % (Auto) 1.0 Baso % (Auto) 0.4 Neut # (Auto) 6.0 Lymph # (Auto) 4.4 [place] # (Auto) 0.8 Eos # (Auto) 0.1 Baso # (Auto) 0.0 WBC Differential . Differential Comment Auto diff final PT 10.9 INR 1.1 APTT 35.5 H Sodium 137 Potassium 3.9 Chloride 100 Carbon Dioxide 29.3 Anion Gap 8 BUN 13 Creatinine 1.04 Estimated GFR Greater than 89 Random Glucose 91 Lactic Acid Calcium 9.1 Total Bilirubin 0.4 AST 26 ALT 20 Alkaline Phosphatase 60 Total Protein 9.4 H Albumin 3.2 L 04/05/18 04/06/18 04/06/18 15:54 04:47 04:47 WBC 9.2 RBC 4.26 L Hgb 12.1 L Hct 36.3 L MCV 85.2 MCH 28.4 MCHC 33.4 RDW 13.6 Plt Count 205 MPV 9.6 Neut % (Auto) 70.5 H Lymph % (Auto) 25.3 [place] % (Auto) 3.7 Eos % (Auto) 0.0 Baso % (Auto) 0.5 Neut # (Auto) 6.5 Lymph # (Auto) 2.3 [place] # (Auto) 0.3 Eos # (Auto) 0.0 Baso # (Auto) 0.0 WBC Differential . Differential Comment Auto diff final PT INR APTT Sodium 138 Potassium 4.9 D Chloride 103 Carbon Dioxide 28.0 Anion Gap 7 BUN 14 Creatinine 0.88 Estimated GFR Greater than 89 Random Glucose 99 Lactic Acid 1.1 Calcium 8.8 Total Bilirubin 0.2 AST 18 ALT 19 Alkaline Phosphatase 58 Total Protein 8.6 H D Albumin 2.8 L - Imaging Impressions Chest X-Ray 04/05/18 15:05 CONCLUSION: Small mild infiltrate left lung base. Head CT 04/05/18 15:23 CONCLUSION: 1. Unremarkable and stable CT scan of the brain. 2. There is a New Bilateral pansinusitis. Assessment and Plan - Plan Impression Pneumonia L, CAP HIV, unknown CD4 count Recommendation Await CD4 couts Check sputum C/S Continue Rocephin and Zithromax Will have CM get info with health Dept so patient can follow-up with them on D/C Follow temps Follow C/S Monitor progress I will follow along with you Thank you for this consultation Explained plan to the patient D/W Dr Daniels (HEPAS)
[2018-04-06] MEDS ORDERED: Azithromycin Inj 500 MG in Sodium Chlor 0.9% Inj 250 ML IV.SIG SCH (20:00)
[2018-04-07] MEDS: Budesonide-Formoterol 160/4.5 MCG 6 GM Inhaler INH SCH (08:23)
[2018-04-07] MEDS: Senna/Docusate Sodium 8.6/50 MG Tablet PO SCH (08:23)
--- NOTE | 2018-04-07 09:20 | P.DS ---
Date of admission: 04/05/18 19:12 Primary care physician: No Primary Care Physician Anticipated date of discharge: 04/07/18 Brief History from admission: This is a 37-year-old male with PMH of HIV (Unknown CD4) who presented to ER with complaints of generalized weakness, congestion, fever/chills and productive cough w/ green-colored sputum. States he was previously following w / doctor in [facility], however has been off of HAART x2 yrs, does not recall last CD4 count. On arrival, BP 187/80, HR 92, O2 sat 98% on RA, Temp 100.4. WBC 11.3. INR 1.1. Chemistry unremarkable. Lactic Acid normal. S/p CT Head unremarkable. CXR small mild infiltrate left lung base. S/p Rocephin/Zithro in ER. Patient update on day of discharge: No shortness of breath. Feeling better. Still with mild productive cough. DS: Diagnosis - Discharge Diagnosis (1) PNA (pneumonia) Status: Acute Diagnosis: Principal (2) HIV (human immunodeficiency virus infection) Status: Chronic Diagnosis: Secondary DS: Medications - Discharge Medications Prescriptions: azithromycin [Zithromax] 500 mg PO DAILY #5 tab cefuroxime axetil 500 mg PO Q12HR #14 tab DS: Summary Hospital Course: These are the medical issues addressed during this hospitalization: 1. Community acquired pneumoniacontinue with IV Rocephin and Zithromax continue with DuoNeb treatment as needed follow-up with blood cultures and sputum cultures. Continue supportive care. Transition to oral Ceftin and Zithromax upon discharge to home. 2. HIV history: Not on HAART, off meds x2 yrs, does not recall last CD4 count but wishes to restart treatment. Lymphocyte panel pending, appreciate infectious disease recommendations, Dr. Kingston, Case Management for outpatient referral. Counseled patient importance of following up with the [facility]. 3. Leukocytosisimproved on antibiotics. 4. DVT prophylaxisno mechanical or pharmaceutical VTE prophalaxis administered due to patient's low risk assessment of VTE. Encouraged ambulation. At this time, patient has gained maximum benefit from hospitalization and is ready to be discharged to home - Time Spent with Patient Total time spent providing and/or coordinating discharge services: Less than 30 minutes - Quality: VTE Deep Vein Thrombosis/Pulmonary Embolism Present on Admission: No Exam Vital signs: Vital Signs 04/06/18 12:00 04/06/18 15:45 04/06/18 16:00 Temperature 98.5 F 98.1 F Pulse Rate 70 62 63 Respiratory Rate 18 18 Blood Pressure 130/58 L 133/71 Pulse Oximetry 100 98 04/06/18 20:00 04/06/18 21:02 04/07/18 00:00 Temperature 98.4 F 98.6 F Pulse Rate 62 70 84 Respiratory Rate 16 22 16 Blood Pressure 152/88 H 134/73 Pulse Oximetry 99 99 04/07/18 04:00 Temperature 98.6 F Pulse Rate 59 L Respiratory Rate 16 Blood Pressure 134/81 Pulse Oximetry 98 Intake & Output 04/06/18 04/07/18 04/07/18 18:59 06:59 18:59 Intake Total 1220 / 1220 1730 / 1730 Balance 1220 / 1220 1730 / 1730 Weight 86.1 kg Intake: IV 350 / 350 Azithromycin Inj 500 MG In NS 250 / 250 Inj 250 ML @ 250 mls/hr IV.SIG Q24H GABE Rx#:[id number] Rocephin Inj 1,000 MG In NS Inj 100 / 100 100 ML @ 200 mls/hr IV.SIG Q24H GABE Rx#:[id number] Oral 1220 / 1220 1380 / 1380 Other: # Voids 3 4 Date of Last Bowel Movement 04/06/18 # Bowel Movements 2 Weight On Admission 172.72 kg Narrative: GENERAL: This is a well-nourished, well-developed patient, in no apparent distress. CARDIOVASCULAR: Regular rate and rhythm without murmurs, gallops, or rubs. RESPIRATORY: Relatively clear to auscultation bilaterally GASTROINTESTINAL: Abdomen soft, non-tender, nondistended. Normal active bowel sounds MUSCULOSKELETAL: Extremities without clubbing, cyanosis, or edema. NEURO: Alert & Oriented x4 to person, place, time, situation. Moves all ext x4 Results Procedures completed during hospitalization: None Labs on day of discharge: Preliminary micro results at discharge 04/05/18 15:50 Aerobic Blood Culture - Preliminary Blood - Peripheral No growth in 1 day Anaerobic Blood Culture - Preliminary No growth in 1 day 04/05/18 15:54 Aerobic Blood Culture - Preliminary Blood - Peripheral No growth in 1 day Anaerobic Blood Culture - Preliminary No growth in 1 day - Impressions ITS Impressions Chest X-Ray 04/05/18 15:05 CONCLUSION: Small mild infiltrate left lung base. Head CT 04/05/18 15:23 CONCLUSION: 1. Unremarkable and stable CT scan of the brain. 2. There is a New Bilateral pansinusitis. Discharge Plan - Discharge Disposition Patient Disposition: 01 Discharge Home - Discharge Condition Condition: Stable - Discharge Order Discharge Orders: Discharge Order (Routine); Ordered 04/07/18 Ordered By: Rocio Daniels - Discharge Details Anticipated Discharge Date: 04/07/18 - Physicians Team Primary Care Provider: Primary Care Ena Sanz Attending Provider: Rocio Daniels Other Providers: June Nguyen MD
[2018-04-07 09:41] VITALS: BP 134/84; PULSE 72; RESP 18; TEMP 98.7; O2SAT 99
== END 2018-04-07 13:15 | disposition home or self-care (01) ==
LOC: NEPD 13:48 → NEDA 19:12 → N06 20:38
PROVIDERS: ADMIT Family Medicine; ATTEND Family Medicine